=== PATIENT | female | born 1985 | race African-American/Black ===

== ENCOUNTER 2017-02-18 09:33 | Emergency (ER) | payer MEDICAID ==
[2017-02-18] MEDS ORDERED: NS 1000 ML 1,000 ML IV ONE (09:53)
[2017-02-18] MEDS ORDERED: NS 1000 ML 1,000 ML ONE ×2 (10:01→11:34)
[2017-02-18 10:30] LABS: BASOPHILS # (AUTO) 0.1 X10^3/uL (0.0-0.1); EOSINOPHILS % (AUTO) 0.2 % (0.9-2.9); HEMATOCRIT 40.7 % (36.0-47.0); HEMOGLOBIN 14.6 g/dL (12.0-16.0); LYMPHOCYTES # (AUTO) 2.7 X10^3/uL (1.3-2.9); LYMPHOCYTES % (AUTO) 32.2 % (21.0-51.0); MEAN CORPUSCULAR HGB CONC 35.9 g/dL (33.0-35.0); MEAN CORPUSCULAR VOLUME 83.6 fL (80.0-100.0); MEAN PLATELET VOLUME 8.4 fL (7.4-11.0); MONOCYTES # (AUTO) 0.8 x10^3/uL (0.3-0.8); MONOCYTES % (AUTO) 9.9 % (0.0-13.0); NEUTROPHILS # (AUTO) 4.8 x10^3/uL (2.2-4.8); NEUTROPHILS % (AUTO) 56.7 % (42.0-75.0); PLATELET COUNT 470 X10^3/uL (150.0-450.0); RED BLOOD COUNT 4.87 X10^6/uL (3.5-5.4); RED CELL DISTRIBUTION WIDTH 15.7 % (11.6-16.5); WHITE BLOOD COUNT 8.4 X10^3/uL (3.6-10.0)
[2017-02-18 10:50] VITALS: BP 130/97
--- NOTE | 2017-02-18 11:01 | DR.GENAD ---
HPI - PCP Primary Care Physician: NFD - Complaint/Symptoms Chief Complaint Doctors Comments: Patient states that she has a vaginal infection and is , Chief Complaint:: 9 WEEKS AND SPITTING UP BLOOD, NAUSEA CAN'T KEEP ANYTHING DOWN. 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 - Source History Provided: Patient - Mode of Arrival Mode of Arrival: Wheelchair - Timing Onset of Chief Complaint: 02/11/17 PMH - PMH Past Medical History: Yes Past Medical History: Seizures Past Surgical History: Yes Surgical History: Abdominal Surgery - Family History History of Family Medical Conditions: No Family Medical History: Cancer, [place], Coronary Artery Disease - Social History Type of Tobacco Use: Cigarettes Does any household member use tobacco: No Alcohol Use: None Do you use any recreational Drugs:: No Lives With: Family Lives Where: Home - infectious screening In the last 2 months have you had wt loss of >10#?: NO Have you had fever, night sweats or hemotysis?: No Have you traveled outside the country in the last 6 months?: No Isolation: Standard ROS - Review of Systems Eyes: No Symptoms Reported ENTM: No Symptoms Reported Respiratoy: No Symptoms Reported Cardiovascular: No Symptoms Reported Gastrointestinal/Abdominal: No Symptoms Reported Genitourinary: No Symptoms Reported Neurological: No Symptoms Reported Musculoskeletal: No Symptoms Reported Integumentary: No Symptoms Reported Hematologic/Lymphatic: No Symptoms Reported Endocrine: No Symptoms Reported Psychiatric: No Symptoms Reported All Other Systems: Reviewed and Negative PE - Vital Signs Vitals: Temperature 99.1 F Pulse Rate [Left Brachial] 99 Pulse Rate 123 Respiratory Rate 20 Blood Pressure [Left Arm] 130/97 Blood Pressure 159/105 O2 Sat by Pulse Oximetry 99 - General Limitations: No Limitations General Appearance: Alert, Anxious - Head Head Exam: Normal Inspection, Atraumatic - Eyes Eye exam: Normal Appearance, PERRL, EOMI - ENT ENT Exam: Normal Exam External Ear Exam: Normal External Inspection TM/Canal Exam: Bilateral Normal Nose Exam: Normal Nose Exam Mouth Exam: Normal Inspection Throat Exam: Normal Inspection - Neck Neck Exam: Normal Inspection, Full ROM - Chest Chest Inspection: Normal Inspection - Respiratory Respiratory Exam: Normal Lung Sounds Bilat Respiratory Exam: Bilateral Clear to Auscultation - Cardiovascular Cardiovascular Exam: Regular Rate, Normal Rhythm - Abdominal Exam Abdominal Exam: Normal Inspection, Normal Bowel Sounds Abdominal Tenderness: Suprapubic - Extremities Extremities Exam: Normal Inspection, Full ROM - Back Back Exam: Normal Inspection, Full ROM - Neurologic Neurological Exam: Alert, Oriented X3, CN II-XII Intact - Psychiatric Psychiatric Exam: Normal Affect, Normal Mood - Skin Skin Exam: Warm, Dry, Intact, Normal Color Course - Treatment Treatment: Potassium Chloride, NS x2L - Reevaluation 1st: Improved ROR - Labs Reviewed Result Diagrams: 02/18/17 10:20 02/18/17 10:20 Laboratory: WBC 8.4 X10^3/uL (3.6-10.0) 02/18/17 10:20 RBC 4.87 X10^6/uL (3.5-5.4) 02/18/17 10:20 Hgb 14.6 g/dL (12.0-16.0) 02/18/17 10:20 Hct 40.7 % (36.0-47.0) 02/18/17 10:20 MCV 83.6 fL (80.0-100.0) 02/18/17 10:20 MCH 30.0 pg (27.0-34.0) 02/18/17 10:20 MCHC 35.9 g/dL (33.0-35.0) H 02/18/17 10:20 RDW 15.7 % (11.6-16.5) 02/18/17 10:20 Plt Count 470 X10^3/uL (150.0-450.0) H 02/18/17 10:20 MPV 8.4 fL (7.4-11.0) 02/18/17 10:20 Neut % 56.7 % (42.0-75.0) 02/18/17 10:20 Lymph % 32.2 % (21.0-51.0) 02/18/17 10:20 [place] % 9.9 % (0.0-13.0) 02/18/17 10:20 Eos % 0.2 % (0.9-2.9) L 02/18/17 10:20 Baso % 1.0 % (0.2-1.0) 02/18/17 10:20 Neut # 4.8 x10^3/uL (2.2-4.8) 02/18/17 10:20 Lymph # 2.7 X10^3/uL (1.3-2.9) 02/18/17 10:20 [place] # 0.8 x10^3/uL (0.3-0.8) 02/18/17 10:20 Eos # 0.0 x10^3/uL (0.0-0.2) 02/18/17 10:20 Baso # 0.1 X10^3/uL (0.0-0.1) 02/18/17 10:20 Absolute Nucleated RBC 0.0 /100WBC 02/18/17 10:20 Sodium 136 mmol/L (136-145) 02/18/17 10:20 Corrected Sodium TNP 02/18/17 10:20 Potassium 2.2 mmol/L (3.5-5.1) L* 02/18/17 10:20 Chloride 95 mmol/L (98-107) L 02/18/17 10:20 Carbon Dioxide 29.2 mmol/L (21-32) 02/18/17 10:20 BUN 13 mg/dL (7-18) 02/18/17 10:20 Creatinine 1.00 mg/dL (0.55-1.02) 02/18/17 10:20 Est GFR (MDRD) Af Amer > 60 (>60) 02/18/17 10:20 Est GFR (MDRD) Non-Af > 60 (>60) 02/18/17 10:20 Glucose 87 mg/dL (65-99) 02/18/17 10:20 Calcium 9.4 mg/dL (8.5-10.1) 02/18/17 10:20 Corrected Calcium TNP 02/18/17 10:20 Total Bilirubin 0.60 mg/dL (0.2-1.0) 02/18/17 10:20 AST 16 Units/L (15-37) 02/18/17 10:20 ALT 21 Units/L (12-78) 02/18/17 10:20 Alkaline Phosphatase 67 Units/L (46-116) 02/18/17 10:20 C-Reactive Protein < 0.50 mg/L (0-3.0) 02/18/17 10:20 Total Protein 9.8 g/dL (6.4-8.2) H 02/18/17 10:20 Albumin 4.6 g/dL (3.4-5.0) 02/18/17 10:20 Globulin 5.2 g/dL (2.5-4.5) H 02/18/17 10:20 Albumin/Globulin Ratio 0.9 Ratio (1.1-2.1) L 02/18/17 10:20 HCG, Qual Positive >10 mIU/mL 02/18/17 10:20 Specimen Type Clean catch urine 02/18/17 11:55 Urine Color Yellow (YELLOW) 02/18/17 11:55 Urine Appearance Slightly hazy (CLEAR) 02/18/17 11:55 Urine pH 6.0 (5.0 - 8.0) 02/18/17 11:55 Ur Specific [place] 1.010 (1.000-1.030) 02/18/17 11:55 Urine Protein 3+ (NEGATIVE) 02/18/17 11:55 Urine Glucose (UA) Negative (NEGATIVE) 02/18/17 11:55 Urine Ketones 2+ (NEGATIVE) 02/18/17 11:55 Urine Occult Blood 2+ (NEGATIVE) 02/18/17 11:55 Urine Nitrite Negative (NEGATIVE) 02/18/17 11:55 Urine Bilirubin Negative (NEGATIVE) 02/18/17 11:55 Urine Urobilinogen 1+ (NORMAL) 02/18/17 11:55 Ur Leukocyte Esterase 1+ (NEGATIVE) 02/18/17 11:55 Urine RBC Rare /HPF (NEGATIVE) 02/18/17 11:55 Urine WBC 03 - 06 /HPF (NEGATIVE) 02/18/17 11:55 Ur Squamous Epith Cells Many /HPF (NEGATIVE) 02/18/17 11:55 Ur Renal Epithelial Cell Rare /HPF (NEGATIVE) 02/18/17 11:55 Amorphous Sediment 2+ /HPF (NEGATIVE) 02/18/17 11:55 Urine Bacteria Trace /HPF (NEGATIVE) 02/18/17 11:55 Hyaline Casts Many /LPF (NEGATIVE) 02/18/17 11:55 Urine Mucus Moderate /HPF (NEGATIVE) 02/18/17 11:55 Ur Culture Indicated? No/not indicated 02/18/17 11:55 - Diagnosis Discharge Problem: Dehydration, Hypokalemia UTI (urinary tract infection) Qualifiers: Urinary tract infection type: acute cystitis Hematuria presence: with hematuria Qualified Code(s): N30.01 - Acute cystitis with hematuria Vaginitis Qualifiers: Chronicity: acute Qualified Code(s): N76.0 - Acute vaginitis - Discharge Plan Condition: Stable - Follow ups/Referrals Follow ups/Referrals: NFD,None [Primary Care Provider] - 3 days - Instructions
[2017-02-18 11:14] LABS: BLOOD UREA NITROGEN 13 mg/dL (7-18); CALCIUM 9.4 mg/dL (8.5-10.1); CARBON DIOXIDE 29.2 mmol/L (21-32); CHLORIDE 95 mmol/L (98-107); GLUCOSE 87 mg/dL (65-99); SODIUM 136 mmol/L (136-145); eGFR BLACK RACES > 60 (>60); eGFR NON BLACK RACES > 60 (>60)
[2017-02-18 11:16] LABS: SERUM PREGNANCY TEST, QUAL POSITIVE >10 mIU/mL
[2017-02-18 11:18] LABS: ALANINE AMINOTRANSFERASE 21 Units/L (12-78); ALBUMIN 4.6 g/dL (3.4-5.0); ALKALINE PHOSPHATASE 67 Units/L (46-116); ASPARTATE AMINO TRANSFERASE 16 Units/L (15-37); TOTAL PROTEIN 9.8 g/dL (6.4-8.2)
[2017-02-18 11:34] LABS: C-REACTIVE PROTEIN < 0.50 mg/L (0-3.0)
[2017-02-18] MEDS ORDERED: K-LYTE EFFERVESCENT ONE (11:40)
[2017-02-18 12:19] LABS: BILIRUBIN,URINE NEGATIVE (NEGATIVE); BLOOD/HEMOGLOBIN,URINE 2+ (NEGATIVE); GLUCOSE, URINE NEGATIVE (NEGATIVE); KETONES,URINE 2+ (NEGATIVE); LEUKOCYTE ESTERASE ,URINE 1+ (NEGATIVE); NITRITES,URINE NEGATIVE (NEGATIVE); PROTEIN,URINE 3+ (NEGATIVE); UROBILINOGEN,URINE 1+ (NORMAL)
[2017-02-18 12:27] LABS: COLOR,URINE YELLOW (YELLOW)
[2017-02-18 12:28] LABS: APPEARANCE,URINE SLIGHTLY HAZY (CLEAR)
[2017-02-18 12:30] LABS: AMORPHOUS SEDIMENT,UR 2+ /HPF (NEGATIVE); BACTERIA,URINE TRACE /HPF (NEGATIVE); HYALINE CASTS, URINE MANY /LPF (NEGATIVE); MUCUS,URINE MODERATE /HPF (NEGATIVE); RBC,URINE RARE /HPF (NEGATIVE); RENAL EPITHELIAL CELLS,URINE RARE /HPF (NEGATIVE); SQUAMOUS EPITHELIAL CELL,UR MANY /HPF (NEGATIVE)
[2017-02-19] MEDS ORDERED: K-LYTE EFFERVESCENT PO ONE (09:00)
== END 2017-02-18 14:51 | disposition home or self-care (01) ==
LOC: ER 09:57
DX: N30.01 Acute cystitis with hematuria (principal); E86.0 Dehydration; N76.0 Acute vaginitis; E87.6 Hypokalemia; Z3A.09 9 weeks gestation of pregnancy
CPT/HCPCS: 36415; 80053; 81001; 84703; 85025; 86140; 96365; 99283; 99284; A4222

== ENCOUNTER 2019-04-11 09:40 | Inpatient (IN) ==
[~2019-04-11 09:40] MED LIST: ANCEF VIAL 1 GRAM ONE; DIPRIVAN VIAL ONE; EPHEDRINE SULFATE INJ ONE; LR 1000 ML IV 1,000 ML IV ONE; MARCAINE SPINAL ONE; NS 100 ML IV 100 ML IV ONE; NS IRRIGATION 1000 ML ONE; TORADOL 30 MG VIAL ONE; VERSED ONE; XYLOCAINE 2 % (PLAIN) ONE
[2019-04-11] MEDS ORDERED: DILAUDID INJ ONE ×2 (10:00→11:40)
[2019-04-11] MEDS ORDERED: DILAUDID INJ IVP PRN (11:22)
[2019-04-11] MEDS ORDERED: REGLAN INJ 10 MG VIAL IVP PRN ×2 (11:22→12:00)
[2019-04-11] MEDS ORDERED: BENADRYL INJ 50 MG VIAL IVP PRN (11:22)
[2019-04-11] MEDS ORDERED: PHENERGAN INJ 25 MG IM PRN (11:22)
[2019-04-11] MEDS ORDERED: ZOFRAN INJ 4 MG VIAL IVP PRN ×2 (11:22→12:00)
[2019-04-11] MEDS ORDERED: D5 1/2 NS 1L W PITOCIN 20 UNITS/L 20 UNITS/1,000 ML BAG IV ONE (11:39)
[2019-04-11 11:42] LABS: BILIRUBIN,URINE NEGATIVE (NEGATIVE); BLOOD/HEMOGLOBIN,URINE 1+ (NEGATIVE); GLUCOSE, URINE NEGATIVE (NEGATIVE); KETONES,URINE NEGATIVE (NEGATIVE); LEUKOCYTE ESTERASE ,URINE NEGATIVE (NEGATIVE); NITRITES,URINE NEGATIVE (NEGATIVE); PH,URINE 6.5 (5.0 - 8.0); PROTEIN,URINE 2+ (NEGATIVE); UROBILINOGEN,URINE NORMAL (NORMAL)
[2019-04-11 11:50] LABS: APPEARANCE,URINE SLIGHTLY HAZY (CLEAR); COLOR,URINE YELLOW (YELLOW); RBC,URINE 0-2 /HPF (0-3); SQUAMOUS EPITHELIAL CELL,UR MODERATE /HPF (NEGATIVE)
[2019-04-11 11:51] LABS: BACTERIA,URINE TRACE /HPF (NEGATIVE)
[2019-04-11] MEDS ORDERED: D5 1/2 NS 1000 ML 1,000 ML with PITOCIN 20 UNITS IV SCH ×2 (12:00)
[2019-04-11] MEDS ORDERED: PERCOCET TAB 5/325 MG PO PRN (12:00)
[2019-04-11] MEDS ORDERED: NARCAN INJ IVP PRN (12:00)
[2019-04-11] MEDS ORDERED: ADACEL or BOOSTRIX TDaP VACCINE IM ONE (12:00)
[2019-04-11] MEDS ORDERED: MYLICON TAB 80 MG CHEW PO PRN (12:00)
[2019-04-11] MEDS ORDERED: TORADOL 30 MG VIAL IVP PRN (12:00)
[2019-04-11] MEDS: MOTRIN TAB 800 MG PO PRN (13:23)
[2019-04-11] MEDS: TORADOL 30 MG VIAL IVP PRN (15:14)
[2019-04-11] MEDS: BENADRYL INJ 50 MG VIAL IVP PRN ×2 (15:15→19:54)
[2019-04-11] MEDS: K-LYTE EFFERVESCENT PO SCH (20:45)
[2019-04-11] MEDS: ZANTAC PO SCH (20:45)
[2019-04-11] MEDS: VISTARIL PO PRN (22:22)
[2019-04-12] MEDS: TORADOL 30 MG VIAL IVP PRN ×2 (02:52→18:09)
[2019-04-12 06:09] LABS: HEMATOCRIT 20.9 % (36.0-47.0); HEMOGLOBIN 7.1 g/dL (12.0-16.0)
[2019-04-12] MEDS: MAG-OX TAB PO SCH (06:18)
[2019-04-12] MEDS: ZANTAC PO SCH ×2 (08:41→21:26)
[2019-04-12] MEDS: PRENATAL PLUS PO SCH (08:41)
[2019-04-12] MEDS: K-LYTE EFFERVESCENT PO SCH ×2 (08:41→21:27)
[2019-04-12] MEDS: VISTARIL PO PRN (08:44)
[2019-04-12 10:53] LABS: BLOOD UREA NITROGEN 1 mg/dL (7-18); CALCIUM 8.5 mg/dL (8.5-10.1); CARBON DIOXIDE 26.8 mmol/L (21-32); CHLORIDE 106 mmol/L (98-107); CREATININE 0.77 mg/dL (0.55-1.02); SODIUM 141 mmol/L (136-145); eGFR NON BLACK RACES > 60 (>60)
[2019-04-13] MEDS: TORADOL 30 MG VIAL IVP PRN (02:25)
[2019-04-13] MEDS: MAG-OX TAB PO SCH (06:07)
[2019-04-13] MEDS: K-LYTE EFFERVESCENT PO SCH ×3 (06:26→20:19)
[2019-04-13] MEDS: PRENATAL PLUS PO SCH (08:44)
[2019-04-13] MEDS: ZANTAC PO SCH ×2 (08:44→20:19)
[2019-04-13] MEDS: MOTRIN TAB 800 MG PO PRN ×2 (09:30→17:15)
[2019-04-13] MEDS ORDERED: TORADOL 30 MG VIAL IVP ONE (19:12)
--- NOTE | 2019-04-14 07:19 | PCM.DCPLAN ---
DISCHARGE SUMMARY Admission Date Date of Admission: 04/11/19 Discharge Date Discharge Date: 04/14/19 Admission Diagnoses (1) Pre-eclampsia affecting with pre-existing hypertension, delivered, current hospitalization: Status: Acute (2) Marijuana use: Status: Acute (3) Hypokalemia: Status: Acute (4) Seizure disorder, grand mal: Status: Acute Discharge Diagnoses Discharge Diagnosis: HTN in prergnancy with severe features Discharge Medications Discharge Medications: Home Medication List Mag oxide 400mg/day potassium chloride [K-Tab] 20 meq PO BID 04/11/19 [History] Prescriptions: Lortab 5/325mg #25 and Motrin 800mg #40 Hospital Course Vital Signs: Temperature 98.2 F Pulse Rate [Left Brachial] 63 Pulse Rate 74 Respiratory Rate 18 Blood Pressure [Right Arm] 146/93 Blood Pressure [Left Arm] 156/88 Blood Pressure 146/93 O2 Sat by Pulse Oximetry 98 Latest Lab Results: Laboratory Last Values Hgb 7.1 g/dL (12.0-16.0) L 04/12/19 04:00 Hct 20.9 % (36.0-47.0) L 04/12/19 04:00 Sodium 141 mmol/L (136-145) 04/12/19 10:30 Corrected Sodium TNP 04/12/19 10:30 Potassium 2.7 mmol/L (3.5-5.1) L* 04/13/19 04:00 Chloride 106 mmol/L (98-107) 04/12/19 10:30 Carbon Dioxide 26.8 mmol/L (21-32) 04/12/19 10:30 BUN 1 mg/dL (7-18) L 04/12/19 10:30 Creatinine 0.77 mg/dL (0.55-1.02) 04/12/19 10:30 Est GFR (MDRD) Af Amer > 60 (>60) 04/12/19 10:30 Est GFR (MDRD) Non-Af > 60 (>60) 04/12/19 10:30 Glucose 68 mg/dL (65-99) 04/12/19 10:30 Calcium 8.5 mg/dL (8.5-10.1) 04/12/19 10:30 Specimen Type Catherized urine 04/11/19 11:37 Urine Color Yellow (YELLOW) 04/11/19 11:37 Urine Appearance Slightly hazy (CLEAR) 04/11/19 11:37 Urine pH 6.5 (5.0 - 8.0) 04/11/19 11:37 Ur Specific [place] 1.005 (1.000-1.030) 04/11/19 11:37 Urine Protein 2+ (NEGATIVE) 04/11/19 11:37 Urine Glucose (UA) Negative (NEGATIVE) 04/11/19 11:37 Urine Ketones Negative (NEGATIVE) 04/11/19 11:37 Urine Occult Blood 1+ (NEGATIVE) 04/11/19 11:37 Urine Nitrite Negative (NEGATIVE) 04/11/19 11:37 Urine Bilirubin Negative (NEGATIVE) 04/11/19 11:37 Urine Urobilinogen Normal (NORMAL) 04/11/19 11:37 Ur Leukocyte Esterase Negative (NEGATIVE) 04/11/19 11:37 Urine RBC 0-2 /HPF (0-3) 04/11/19 11:37 Urine WBC 0-2 /HPF (0-5) 04/11/19 11:37 Ur Squamous Epith Cells Moderate /HPF (NEGATIVE) 04/11/19 11:37 Urine Bacteria Trace /HPF (NEGATIVE) 04/11/19 11:37 Ur Culture Indicated? No/not indicated 04/11/19 11:37 Tissue Pathology To follow 04/11/19 10:39 Blood Type A POSITIVE 04/10/19 08:22 Antibody Screen Negative 04/10/19 08:22 Hospital Course: The pt was admitted and had a repeat . She declined the tuble ligation. she did very well and we finally got her to take her KCl orally. She visited her baby in the nursery a couple of times without difficulty. She desires to be D/C'd today. She is uncertain about her future desires but has been told to expect the same or worse conditions with a future . She had similar events with her last . She is instructed to see me back in 2 weeks and to maintain pelvic rest for 6 weeks.
[2019-04-14] MEDS: K-LYTE EFFERVESCENT PO SCH (09:29)
[2019-04-14] MEDS: PRENATAL PLUS PO SCH (09:29)
[2019-04-14] MEDS: MAG-OX TAB PO SCH (09:29)
[2019-04-14] MEDS: ZANTAC PO SCH (09:29)
[2019-04-14] MEDS: MOTRIN TAB 800 MG PO PRN (09:33)
[2019-04-14 12:02] VITALS: BP 149/93
== END 2019-04-14 12:00 | disposition home or self-care (01) | DRG 786 ==
LOC: LD 09:40 → MED/SURG 12:22
PROVIDERS: ADMIT Obstetrics & Gynecology; ATTEND Obstetrics & Gynecology
DX: O60.14X0 Preterm labor third trimester with preterm delivery third trimester, not applicable or unspecified; O34.211 Maternal care for low transverse scar from previous cesarean delivery; Z37.0 Single live birth; Z3A.35 35 weeks gestation of pregnancy; E87.6 Hypokalemia; G40.409 Other generalized epilepsy and epileptic syndromes, not intractable, without status epilepticus; O11.3 Pre-existing hypertension with pre-eclampsia, third trimester; Z23 Encounter for immunization; N85.8 Other specified noninflammatory disorders of uterus; F12.10 Cannabis abuse, uncomplicated
CPT/HCPCS: 36415; 59025; 76818; 80048; 80053; 81001; 83615; 83735; 84132; 84550; 85014; 85018; 85025; 85384; 85610; 85730; 86592; 86850; 86900; 86901; 90715; 94760; 96365; 96367; 96374; A4216; A4222; Q0177; S0197; J0690; J1170; J1200; J1885; J2250; J2300; J2704; J3490; J7030; J7050; J7120; J8499